=== PATIENT | male | born 1995 | race Caucasian/White ===

== ENCOUNTER 2017-03-03 10:03 | Emergency (ER) | payer BC ==
[~2017-03-03] VITALS: Ht 180.3 cm; Wt 53.5 kg
[~2017-03-03 10:03] MED LIST: ADVIL200 MG PO; CORTEF10 MG PO; FLUDROCORTISON0.1 M1 PO; HYDROCORTISONE10 MG PO; HYDROCORTISONE20 MG PO; PANTOPRAZOLE SO40 MG PO; PROMETHAZINE HC25 M1 PO; SYNTHROID100 MCG PO; SYNTHROID137 MCG PO; SYNTHROID175 MCG PO; SYNTHROID200 MCG PO; VITAMIN D34000 UNIT PO
[2017-03-03] MEDS ORDERED: HYDROCORTISONE10 MG PO ×2 (12:17→12:18)
[2017-03-03 13:21] LABS: HEMATOCRIT 40.3 % (38.0-50.0); MCHC 34.2 G/DL (30.0-36.0); MCV 84.7 FL (86-99); MEAN PLAT.VOLUME 10.2 uM^3 (9.0-12.4); PLATELET COUNT 271 K/uL (156-360); RBC DIS.WIDTH-CV 12.5 % (11.8-14.6); RBC DIS.WIDTH-SD 38.6 % (39-53); RED BLOOD COUNT 4.76 M/uL (4.00-5.50)
[2017-03-03 13:32] LABS: CHLORIDE 97 mEq/L (99-109); POTASSIUM 5.3 mEq/L (3.7-5.4); SODIUM 131 mEq/L (136-147)
[2017-03-03 13:34] LABS: GLUCOSE 88 mg/dL (70-99)
[2017-03-03 13:35] LABS: ANION GAP 10 MEQ/L (2-14)
[2017-03-03 13:36] LABS: TOTAL BILIRUBIN 0.7 mg/dL (0.0-1.0)
[2017-03-03 13:37] LABS: ALKALINE PHOSPHATASE 69 IU/L (3-129)
[2017-03-03 13:38] LABS: GFR ESTIMATE (CALCULATED) > 59 mL/min/
[2017-03-03 13:39] LABS: UREA NITROGEN (BUN) 24 mg/dL (9-23)
[2017-03-03 17:11] VITALS: BP 111/70
== END 2017-03-03 17:13 | disposition home or self-care (01) ==
LOC: EME 10:03
PROVIDERS: Nurse Practitioner Family
DX: R51 Headache (principal); R42 Dizziness and giddiness; H53.8 Other visual disturbances; E03.9 Hypothyroidism, unspecified; E27.1 Primary adrenocortical insufficiency
CPT/HCPCS: 70450; 70553; 80053; 84443; 85027; 99281; 99284

== ENCOUNTER 2017-08-15 09:16 | Inpatient (IN) | payer BC ==
[~2017-08-15] VITALS: Ht 180.3 cm; Wt 52.0 kg
[2017-08-15 10:00] LABS: HEMATOCRIT 39.8 % (38.0-50.0); MCH 29.4 PG (29.0-34.0); MCHC 37.2 G/DL (30.0-36.0); MCV 79.1 FL (86-99); MEAN PLAT.VOLUME 9.1 uM^3 (9.0-12.4); PLATELET COUNT 379 K/uL (156-360); RBC DIS.WIDTH-SD 34.5 % (39-53); RED BLOOD COUNT 5.03 M/uL (4.00-5.50); WHITE BLOOD COUNT 10.6 K/uL (4.1-10.2)
[2017-08-15 10:12] LABS: CHLORIDE 79 mEq/L (99-109); POTASSIUM 5.6 mEq/L (3.7-5.4)
[2017-08-15 10:14] LABS: GLUCOSE 86 mg/dL (70-99)
[2017-08-15 10:15] LABS: ANION GAP 15 MEQ/L (2-14)
[2017-08-15 10:18] LABS: GFR ESTIMATE (CALCULATED) > 59 mL/min/; UREA NITROGEN (BUN) 19 mg/dL (9-23)
[2017-08-15 10:19] LABS: SODIUM 115 mEq/L (136-147)
[2017-08-15 12:56] LABS: TOTAL BILIRUBIN 0.9 mg/dL (0.0-1.0)
[2017-08-15 12:57] LABS: ALKALINE PHOSPHATASE 80 IU/L (3-129)
[2017-08-15 13:00] LABS: DIRECT BILIRUBIN 0.3 mg/dL (0.0-0.3)
[2017-08-15 13:01] LABS: LIPASE 19 U/L (1.0-51.0)
[2017-08-15 15:32] LABS: ADD MIUA? NO; BILIRUBIN NEGATIVE; BLOOD NEGATIVE; COLOR COLORLESS ((YELLOW)); GLUCOSE (STRIP) NEGATIVE; KETONES 20; LEUKOCYTES NEGATIVE; NITRITE NEGATIVE; PROTEIN (STRIP) NEGATIVE; SPECIFIC GRAVITY 1.002 (1.000-1.030); UCUL ADDED? NO; UROBILINOGEN 0.2 MG/DL (0.2-1.0)
[2017-08-15] MEDS ORDERED: FLUDROCORTISON0.1 M1 PO (17:30)
[2017-08-15 20:33] VITALS: BP 102/58
[2017-08-15 21:27] LABS: ANION GAP 5 MEQ/L (2-14); CHLORIDE 88 MEQ/L (99-109); GFR ESTIMATE (CALCULATED) > 59 mL/min/; MAGNESIUM 1.7 mg/dl (1.3-2.7); SAMPLE HEMOLYSIS CHECK 0; SAMPLE ICTERIC CHECK 0; SAMPLE LIPEMIA CHECK 0; UREA NITROGEN (BUN) 15 mg/dL (9-23)
[2017-08-15 21:29] LABS: GLUCOSE 157 mg/dL (70-99); POTASSIUM 4.1 MEQ/L (3.7-5.4); SODIUM 116 MEQ/L (136-147)
[2017-08-16 00:02] VITALS: BP 99/55
[2017-08-16 02:48] LABS: CHLORIDE 91 mEq/L (99-109); POTASSIUM 3.9 mEq/L (3.7-5.4); SODIUM 123 mEq/L (136-147)
[2017-08-16 02:49] LABS: GLUCOSE 159 mg/dL (70-99)
[2017-08-16 02:51] LABS: ANION GAP 11 MEQ/L (2-14)
[2017-08-16 02:53] LABS: GFR ESTIMATE (CALCULATED) > 59 mL/min/
[2017-08-16 02:54] LABS: UREA NITROGEN (BUN) 15 mg/dL (9-23)
[2017-08-16 03:53] VITALS: BP 101/55
[2017-08-16 06:24] LABS: EOSINOPHIL (%) 0 % (0-5); HEMATOCRIT 30.9 % (38.0-50.0); IMMATURE GRANULOCYTE (%) 0.4 % (0.0-0.7); INSTRUMENT ABS NEUTROPHIL CT 5.8 K/uL; LYMPHOCYTE COUNT 1.2 K/uL (1.0-2.8); MCH 29.9 PG (29.0-34.0); MCHC 37.2 G/DL (30.0-36.0); MCV 80.5 FL (86-99); MEAN PLAT.VOLUME 9.1 uM^3 (9.0-12.4); MONOCYTE (%) 6.7 % (3-12); MONOCYTE COUNT 0.5 K/uL (0-0.8); NEUTROPHIL (%) 77.3 % (45-76); NEUTROPHIL COUNT 5.8 K/uL (1.8-6.4); PLATELET COUNT 289 K/uL (156-360); RBC DIS.WIDTH-CV 12.6 % (11.8-14.6); RBC DIS.WIDTH-SD 36.4 % (39-53); RED BLOOD COUNT 3.84 M/uL (4.00-5.50); WHITE BLOOD COUNT 7.5 K/uL (4.1-10.2)
[2017-08-16 06:27] LABS: ALKALINE PHOSPHATASE 55 IU/L (3-129); ANION GAP 8 MEQ/L (2-14); CHLORIDE 92 MEQ/L (99-109); GFR ESTIMATE (CALCULATED) > 59 mL/min/; POTASSIUM 4.1 MEQ/L (3.7-5.4); SAMPLE HEMOLYSIS CHECK 0; SAMPLE ICTERIC CHECK 0; SAMPLE LIPEMIA CHECK 0; SODIUM 123 MEQ/L (136-147); TOTAL BILIRUBIN 0.4 MG/DL (0.0-1.0); UREA NITROGEN (BUN) 15 mg/dL (9-23)
[2017-08-16 06:28] LABS: GLUCOSE 106 mg/dL (70-99)
[2017-08-16 08:00] VITALS: BP 100/55
[2017-08-16 12:00] VITALS: BP 102/64
[2017-08-16 14:49] LABS: ANION GAP 8 MEQ/L (2-14); CHLORIDE 90 MEQ/L (99-109); GFR ESTIMATE (CALCULATED) > 59 mL/min/; GLUCOSE 128 mg/dL (70-99); POTASSIUM 3.2 MEQ/L (3.7-5.4); SAMPLE HEMOLYSIS CHECK 0; SAMPLE ICTERIC CHECK 0; SAMPLE LIPEMIA CHECK 0; SODIUM 123 MEQ/L (136-147); UREA NITROGEN (BUN) 13 mg/dL (9-23)
[2017-08-16 15:38] VITALS: BP 112/65
[2017-08-16 20:20] VITALS: BP 104/59
[2017-08-16 22:22] LABS: ANION GAP 9 MEQ/L (2-14); CHLORIDE 92 MEQ/L (99-109); GFR ESTIMATE (CALCULATED) > 59 mL/min/; GLUCOSE 105 mg/dL (70-99); POTASSIUM 3.8 MEQ/L (3.7-5.4); SAMPLE HEMOLYSIS CHECK 0; SAMPLE ICTERIC CHECK 0; SAMPLE LIPEMIA CHECK 0; SODIUM 124 MEQ/L (136-147); UREA NITROGEN (BUN) 12 mg/dL (9-23)
[2017-08-17 00:18] VITALS: BP 102/55
[2017-08-17 07:20] VITALS: BP 98/60
[2017-08-17 07:39] LABS: ANION GAP 6 MEQ/L (2-14); CHLORIDE 94 MEQ/L (99-109); GFR ESTIMATE (CALCULATED) > 59 mL/min/; GLUCOSE 105 mg/dL (70-99); POTASSIUM 3.8 MEQ/L (3.7-5.4); SAMPLE HEMOLYSIS CHECK 0; SAMPLE ICTERIC CHECK 0; SAMPLE LIPEMIA CHECK 0; SODIUM 126 MEQ/L (136-147); UREA NITROGEN (BUN) 10 mg/dL (9-23)
[2017-08-17 14:55] LABS: ANION GAP 10 MEQ/L (2-14); CHLORIDE 92 MEQ/L (99-109); GFR ESTIMATE (CALCULATED) > 59 mL/min/ (58.99-99999); GLUCOSE 93 mg/dL (70-99); POTASSIUM 3.8 MEQ/L (3.7-5.4); SAMPLE HEMOLYSIS CHECK 0; SAMPLE ICTERIC CHECK 0; SAMPLE LIPEMIA CHECK 0; SODIUM 127 MEQ/L (136-147); UREA NITROGEN (BUN) 12 mg/dL (9-23)
[2017-08-17 15:27] VITALS: BP 102/56
[2017-08-17 20:32] VITALS: BP 98/56
[2017-08-17 22:38] LABS: ANION GAP 6 MEQ/L (2-14); CHLORIDE 93 MEQ/L (99-109); GFR ESTIMATE (CALCULATED) > 59 mL/min/ (58.99-99999); GLUCOSE 99 mg/dL (70-99); POTASSIUM 3.5 MEQ/L (3.7-5.4); SAMPLE HEMOLYSIS CHECK 0; SAMPLE ICTERIC CHECK 0; SAMPLE LIPEMIA CHECK 0; SODIUM 125 MEQ/L (136-147); UREA NITROGEN (BUN) 14 mg/dL (9-23)
[2017-08-18] VITALS: BP 97/55
[2017-08-18 07:17] VITALS: BP 102/60
[2017-08-18 07:41] LABS: EOSINOPHIL (%) 0 % (0-5); HEMATOCRIT 27.4 % (38.0-50.0); IMMATURE GRANULOCYTE (%) 0.8 % (0.0-0.7); IMMATURE GRANULOCYTE COUNT 0.1 K/uL; INSTRUMENT ABS NEUTROPHIL CT 7.3 K/uL; MCH 29.1 PG (29.0-34.0); MCHC 34.7 G/DL (30.0-36.0); MEAN PLAT.VOLUME 9.3 uM^3 (9.0-12.4); MONOCYTE (%) 4.4 % (3-12); MONOCYTE COUNT 0.4 K/uL (0-0.8); NEUTROPHIL COUNT 7.3 K/uL (1.8-6.4); PLATELET COUNT 269 K/uL (156-360); RBC DIS.WIDTH-CV 13.3 % (11.8-14.6); RBC DIS.WIDTH-SD 41.4 % (39-53); RED BLOOD COUNT 3.26 M/uL (4.00-5.50); WHITE BLOOD COUNT 8.8 K/uL (4.1-10.2)
[2017-08-18 08:11] LABS: ALKALINE PHOSPHATASE 40 IU/L (3-129); ANION GAP 5 MEQ/L (2-14); CHLORIDE 95 MEQ/L (99-109); GFR ESTIMATE (CALCULATED) > 59 mL/min/ (58.99-99999); GLUCOSE 97 mg/dL (70-99); SAMPLE HEMOLYSIS CHECK 0; SAMPLE ICTERIC CHECK 0; SAMPLE LIPEMIA CHECK 0; SODIUM 128 MEQ/L (136-147); UREA NITROGEN (BUN) 11 mg/dL (9-23)
[2017-08-18 08:19] LABS: TOTAL BILIRUBIN 0.3 MG/DL (0.0-1.0)
[2017-08-18] MEDS ORDERED: SODIUM CHLORIDE1 G1 PO (12:23)
== END 2017-08-18 13:27 | disposition home or self-care (01) | DRG 644 ==
LOC: EME 09:16 → EDOF 15:12 → 4EAST 15:12 → ENRESERV 15:13 → 4EAST 20:01 → ENRESERV 08-16 12:42 → 2EAST 08-16 15:27
PROVIDERS: Hospitalist
DX: E27.2 Addisonian crisis (principal); E87.1 Hypo-osmolality and hyponatremia; E06.3 Autoimmune thyroiditis; R63.6 Underweight; Z68.1 Body mass index [BMI] 19.9 or less, adult; E27.1 Primary adrenocortical insufficiency; K90.0 Celiac disease; E87.5 Hyperkalemia; E86.1 Hypovolemia; N28.9 Disorder of kidney and ureter, unspecified; E87.0 Hyperosmolality and hypernatremia; K52.9 Noninfective gastroenteritis and colitis, unspecified
CPT/HCPCS: 80048; 80048 91; 80053; 80076; 81003; 83690; 83735; 83935; 84300; 85025; 85027; 93005; 99281; 99285; J1644; J1720; J2405; J7030